=== PATIENT | female | born 1990 | race African-American/Black ===

== ENCOUNTER 2021-06-27 08:51 | Emergency (ER) | payer MEDICAID ==
[~2021-06-27] VITALS: Ht 165.1 cm; Wt 79.0 kg
[2021-06-27] MEDS ORDERED: ACETAMINOPHEN 325MG TABLET PO STA (09:16)
[2021-06-27] MEDS ORDERED: SODIUM CHLORIDE 0.9% 1,000 ML IV ONE (09:30)
[2021-06-27 10:06] LABS: BASOPHILS % 0.4 % (0.0-2.0); EOSINOPHILS % 0.1 % (0.0-5.0); HEMATOCRIT. 35.8 % (36.0-48.0); HEMOGLOBIN. 12.3 g/dL (12.0-16.0); LYMPHOCYTES % 9.5 % (20.0-50.0); MEAN CORPUSCULAR HEMOGLOBIN 32.4 pg (28.0-32.0); MEAN PLATELET VOLUME 9.4 fl (7.4-10.4); MONOCYTES % 5.3 % (2.0-8.0); NEUTROPHILS % 84.7 % (40.0-76.0); PLATELET 159 x1000/uL (130-400); RED BLOOD CELL COUNT 3.81 mill/uL (4.2-5.4)
[2021-06-27 10:15] LABS: CHLORIDE 112 mEq/L (98-107)
[2021-06-27 10:33] LABS: HCG SCREEN NEGATIVE
[2021-06-27 13:00] VITALS: BP 110/72
[2021-06-27] MEDS ORDERED: CLIN300C12 MT (13:03)
[2021-06-27] MEDS ORDERED: IBUP-2029 MT (13:03)
[2021-06-27] MEDS ORDERED: CLINDAMYCIN HCL 150MG CAPSULE PO ONE (13:15)
[2021-06-27] MEDS ORDERED: IOHEXOL-300 100 ML BOTTLE ONE (13:35)
== END 2021-06-27 13:44 | disposition home or self-care (01) ==
LOC: ER 09:08
DX: K04.7 Periapical abscess without sinus (principal); K12.2 Cellulitis and abscess of mouth; F12.90 Cannabis use, unspecified, uncomplicated
CPT/HCPCS: 36415; 70487; 80053; 84703; 85025; 99285; J7030; Q9967